=== PATIENT | female | born 1930 | race Caucasian/White ===

== ENCOUNTER → 2020-01-06 | Emergency (ER) | payer OTHER ==
[~2020-01-06] VITALS: Ht 160 cm; Wt 59.9 kg
[~2020-01-06] MED LIST: MORPHINE SULFATE 4 MG/ML SYR/VIAL IV ONE; ONDANSETRON HCL 4 MG/2 ML VIAL IV ONE
[2020-01-06 04:03] LABS: INR 1.07 (0.9-1.15)
[2020-01-06 05:30] VITALS: BP 167/77
== END | disposition home or self-care (01) ==
LOC: EDBD 03:03 → ER 03:03
DX: S01.01XA Laceration without foreign body of scalp, initial encounter (principal); S20.211A Contusion of right front wall of thorax, initial encounter; I48.91 Unspecified atrial fibrillation; E11.9 Type 2 diabetes mellitus without complications; I10 Essential (primary) hypertension; X58.XXXA Exposure to other specified factors, initial encounter; Y93.89 Activity, other specified; Y92.89 Other specified places as the place of occurrence of the external cause; Y99.8 Other external cause status
CPT/HCPCS: 36415; 70450; 71250; 72125; 74176; 85610; 85730; 93005; J2405

== ENCOUNTER 2020-04-16 22:15 | Emergency (ER) | payer OTHER ==
[~2020-04-16] VITALS: Ht 162.6 cm; Wt 68.0 kg
[2020-04-16 23:18] LABS: Basophils # (auto) 0 10 ^3/uL (0-0.2); Basophils % (auto) 0.6 % (0.0-2.0); Eosinophils # (auto) 0.1 10 ^3/uL (0-0.8); Eosinophils % (auto) 1.9 % (0.0-7.0); Hematocrit 32.4 % (36.0-46.0); Hemoglobin 10.5 g/dL (12.2-16.2); Lymphocytes # (auto) 1.7 10 ^3/uL (0.4-5.4); Lymphocytes % (auto) 34.5 % (10.0-50.0); Mean Corpuscular Hgb Conc. 32.3 g/dL (32.0-36.0); Monocytes # (auto) 0.4 10 ^3/uL (0-1.3); Monocytes % (auto) 9.1 % (0.0-12.0); Neutrophils # (auto) 2.6 10 ^3/uL (1.6-8.6); Neutrophils % (auto) 53.9 % (37.0-80.0); Platelet Count (auto) 195 10^3/uL (140-450); Red Cell Distribution Width 16.6 % (11.8-14.3); White Blood Cell 4.8 10^3/uL (4.4-10.8)
[2020-04-16 23:37] LABS: INR 1.09 (0.9-1.15); Partial Thromboplastin Time 26.3 sec (23.0-31.2)
[2020-04-16 23:44] LABS: Albumin 3.7 g/dL (3.4-5.0); Anion Gap 8 (5-15); Blood Urea Nitrogen 16 mg/dL (7-18); Calcium 8.7 mg/dL (8.5-10.1); Carbon Dioxide 23 mmol/L (21-32); Chloride 109 mmol/L (98-107); Glucose 131 mg/dL (74-106); Magnesium 1.8 mg/dL (1.6-2.6); Potassium 3.9 mmol/L (3.5-5.1); Sodium 140 mmol/L (136-145)
[2020-04-16 23:47] LABS: Alanine Aminotransferase 31 U/L (13-56); Aspartate Aminotransferase 30 U/L (15-37); GFR African American 62 mL/min; GFR Non-African American 51 mL/min
[2020-04-16 23:51] LABS: Alkaline Phosphatase 51 U/L (45-117); Bilirubin, Total 0.3 mg/dL (0.2-1.0); Total Protein 7.5 g/dL (6.4-8.2)
[2020-04-17] MEDS ORDERED: GLIP5TAB12 PO (02:29)
[2020-04-17] MEDS ORDERED: APIX2.5T PO (02:29)
[2020-04-17] MEDS ORDERED: METF-929 PO (02:29)
[2020-04-17] MEDS ORDERED: ROPI2TAB4 PO (02:29)
[2020-04-17] MEDS ORDERED: DILT-29 PO (02:29)
[2020-04-17] MEDS ORDERED: PANT1INJ3 IV (02:29)
[2020-04-17] MEDS ORDERED: DIGO0.12 PO (02:29)
[2020-04-17] MEDS ORDERED: METF500S PO (02:29)
[2020-04-17] MEDS ORDERED: PANT40TA2 PO (02:36)
[2020-04-17 02:45] VITALS: BP 146/68
== END 2020-04-17 04:18 | disposition home or self-care (01) ==
LOC: EDBD 22:15 → ER 22:15
DX: I48.0 Paroxysmal atrial fibrillation (principal); E11.9 Type 2 diabetes mellitus without complications; I10 Essential (primary) hypertension
CPT/HCPCS: 36415; 71045; 80053; 83735; 83880; 84484; 85025; 85379; 85610; 85730; 93005

== ENCOUNTER 2020-11-23 07:06 | Inpatient (IN) | payer OTHER ==
[~2020-11-23] VITALS: Ht 160 cm; Wt 56.7 kg
[~2020-11-23 07:06] MED LIST changes: +APIX2.5T PO; +ATOR20TA PO; +DIGO0.12 PO; +DILT-26 PO; +FAMO-12 PO; +FURO1TAB33 PO; +GLIM-5 PO; +METF-370 PO; +METO25TA93 PO; -MORPHINE SULFATE 4 MG/ML SYR/VIAL IV ONE; -ONDANSETRON HCL 4 MG/2 ML VIAL IV ONE; +POTA8TAB2 PO; +ROPI-24 PO
[2020-11-23] MEDS ORDERED: LIDOCAINE 2%HCL (LOCAL ANESTH.) INJ 20ML MDV ONE (08:14)
[2020-11-23] MEDS ORDERED: ENOXAPARIN SOD 100 MG/1 ML SYRINGE SC ONE (08:17)
[2020-11-23] MEDS ORDERED: fentaNYL CITRATE 100 MCG/2 ML VL ONE (08:32)
[2020-11-23] MEDS ORDERED: LIDOCAINE VISCOUS 2% 15ML UD ONE (08:33)
[2020-11-23] MEDS ORDERED: MIDAZOLAM HCL 1MG/1ML-2 ML VIAL ONE (08:33)
[2020-11-23] MEDS ORDERED: diphenhdrAMINE HCL 50 MG/1 ML VL ONE (09:39)
[2020-11-23] MEDS ORDERED: NITROGLYCERIN 0.4 MG SL TAB SL PRN ×2 (10:30→12:00)
[2020-11-23] MEDS ORDERED: ACETAMINOPHEN 500 MG TAB PO PRN (10:30)
[2020-11-23] MEDS ORDERED: MORPHINE SULF INJ 2 MG/ML SYRINGE 1ML IV PRN ×2 (10:30→12:00)
[2020-11-23] MEDS ORDERED: POTASSIUM CHLORIDE 8 MEQ TAB PO ONE (10:45)
[2020-11-23] MEDS ORDERED: metFORMIN HYDROCHLORIDE 500 MG TAB PO ONE (10:45)
[2020-11-23] MEDS ORDERED: SOTALOL HCL 80 MG TAB PO ONE (10:45)
[2020-11-23] MEDS ORDERED: GLIMEPIRIDE 2 MG TAB PO ONE (10:45)
[2020-11-23] MEDS ORDERED: FAMOTIDINE 20 MG TAB PO ONE (10:45)
[2020-11-23] MEDS ORDERED: APIXABAN 2.5 MG TAB PO ONE (10:45)
[2020-11-23 12:00] VITALS: BP 107/52
[2020-11-23] MEDS ORDERED: hydrALAZINE HCL 20 MG/ML VL IV PRN (12:15)
[2020-11-23] MEDS ORDERED: HYDROcodone-ACET 5/325MG TAB PO PRN (12:15)
[2020-11-23] MEDS ORDERED: ONDANSETRON HCL 4 MG/2 ML VIAL IV PRN (12:15)
[2020-11-23 14:42] VITALS: BP 107/52
[2020-11-23 16:57] VITALS: BP 115/76
[2020-11-23] MEDS: metFORMIN HYDROCHLORIDE 500 MG TAB PO SCH (18:00)
[2020-11-23 20:00] VITALS: BP 150/74
[2020-11-23] MEDS: SOTALOL HCL 80 MG TAB PO SCH (21:48)
[2020-11-23] MEDS: APIXABAN 2.5 MG TAB PO SCH (21:48)
[2020-11-23 22:05] VITALS: BP 160/60
[2020-11-24] VITALS (7 sets, daily range): BP systolic 127–174; BP diastolic 56–77
[2020-11-24] MEDS ORDERED: GLIMEPIRIDE 2 MG TAB PO SCH (07:00)
[2020-11-24] MEDS ORDERED: metFORMIN HYDROCHLORIDE 500 MG TAB PO SCH (07:00)
[2020-11-24] MEDS ORDERED: POTASSIUM CHLORIDE 8 MEQ TAB PO SCH (07:00)
[2020-11-24] MEDS ORDERED: FAMOTIDINE 20 MG TAB PO SCH (07:00)
[2020-11-24] MEDS ORDERED: ATORVASTATIN 20 MG TAB PO SCH (10:00)
[2020-11-24] MEDS: SOTALOL HCL 80 MG TAB PO SCH (10:28)
[2020-11-24] MEDS: APIXABAN 2.5 MG TAB PO SCH (10:28)
[2020-11-24] MEDS ORDERED: ALBUTEROL SULF 2.5 MG/0.5ML(0.5%) NEB SOLN NEB PRN (14:00)
[2020-11-24] MEDS ORDERED: ALBUTEROL SULF 2.5 MG/0.5ML(0.5%) NEB SOLN ONE (14:02)
[2020-11-24] MEDS ORDERED: FUROSEMIDE 20 MG/2 ML VIAL IV ONE (14:30)
[2020-11-24] MEDS ORDERED: AZITHROMYCIN 500MG/ 250ML 250 ML IV SCH (14:32)
[2020-11-24 15:06] LABS: Basophils # (auto) 0 10 ^3/uL (0-0.2); Basophils % (auto) 0.4 % (0.0-2.0); Eosinophils # (auto) 0.1 10 ^3/uL (0-0.8); Eosinophils % (auto) 1.2 % (0.0-7.0); Hematocrit 36.3 % (36.0-46.0); Lymphocytes # (auto) 0.9 10 ^3/uL (0.4-5.4); Lymphocytes % (auto) 8.5 % (10.0-50.0); Mean Corpuscular Hemoglobin 29.9 pg (28.0-32.0); Mean Corpuscular Hgb Conc. 33.2 g/dL (32.0-36.0); Mean Corpuscular Volume 90.1 fL (80.0-100.0); Monocytes # (auto) 0.5 10 ^3/uL (0-1.3); Monocytes % (auto) 4.5 % (0.0-12.0); Neutrophils # (auto) 8.6 10 ^3/uL (1.6-8.6); Neutrophils % (auto) 85.4 % (37.0-80.0); Platelet Count (auto) 228 10^3/uL (140-450); Red Blood Cells 4.03 10^6/uL (4.0-5.20); Red Cell Distribution Width 16.8 % (11.8-14.3); White Blood Cell 10.1 10^3/uL (4.4-10.8)
[2020-11-24 15:29] LABS: BUN/Creatinine Ratio 11.7; Calcium 9.6 mg/dL (8.5-10.1); Potassium 3.9 mmol/L (3.5-5.1)
[2020-11-24] MEDS ORDERED: PROMETHAZINE-DM 5 ML ORAL SYRUP PO ONE (15:30)
[2020-11-24] MEDS: metFORMIN HYDROCHLORIDE 500 MG TAB PO SCH (18:00)
[2020-11-29] MEDS ORDERED: CEPH-322 PO (18:32)
== END 2020-11-24 20:20 | disposition home or self-care (01) | DRG 274 ==
LOC: CATH 07:06 → TELE 10:24 → TELE-WESTW 12:09
PROVIDERS: ADMIT Internal Medicine; ATTEND Internal Medicine
PROC: 02583ZZ Destruction of Conduction Mechanism, Percutaneous Approach (ICD-10-PCS; principal; 2020-11-23)
PROC: 4A023FZ Measurement of Cardiac Rhythm, Percutaneous Approach (ICD-10-PCS; 2020-11-23)
PROC: 4A0234Z Measurement of Cardiac Electrical Activity, Percutaneous Approach (ICD-10-PCS; 2020-11-23)
PROC: 02K83ZZ Map Conduction Mechanism, Percutaneous Approach (ICD-10-PCS; 2020-11-23)
PROC: B24BZZ4 Ultrasonography of Heart with Aorta, Transesophageal (ICD-10-PCS; 2020-11-23)
PROC: 5A2204Z Restoration of Cardiac Rhythm, Single (ICD-10-PCS; 2020-11-23)
DX: I48.92 Unspecified atrial flutter (principal); I48.91 Unspecified atrial fibrillation; I10 Essential (primary) hypertension; Z20.822 Contact with and (suspected) exposure to COVID-19; G25.81 Restless legs syndrome; E11.51 Type 2 diabetes mellitus with diabetic peripheral angiopathy without gangrene; G20 Parkinson's disease; E78.5 Hyperlipidemia, unspecified; I25.10 Atherosclerotic heart disease of native coronary artery without angina pectoris; E78.00 Pure hypercholesterolemia, unspecified; K21.9 Gastro-esophageal reflux disease without esophagitis; Z79.01 Long term (current) use of anticoagulants; Z79.84 Long term (current) use of oral hypoglycemic drugs; Z79.899 Other long term (current) drug therapy; Z88.2 Allergy status to sulfonamides; Z87.891 Personal history of nicotine dependence; E66.9 Obesity, unspecified; I49.5 Sick sinus syndrome; Z68.22 Body mass index [BMI] 22.0-22.9, adult
CPT/HCPCS: 36415; 71045; 80048; 82962; 83880; 85025; 92960; 93005; 93312; 93613; 93656; 94640; 99152; 99153; G0378; J2250

== ENCOUNTER 2020-11-29 12:48 | Emergency (ER) | payer OTHER ==
[~2020-11-29] VITALS: Ht 160 cm; Wt 54.4 kg
[~2020-11-29 12:48] MED LIST changes: -DIGO0.12 PO; -DILT-26 PO; -FURO1TAB33 PO; -METO25TA93 PO
[2020-11-29] MEDS ORDERED: SODIUM CHLORIDE 0.9% 1,000 ML IVB ONE (13:15)
[2020-11-29 13:35] LABS: Basophils # (auto) 0 10 ^3/uL (0-0.2); Basophils % (auto) 0.4 % (0.0-2.0); Eosinophils # (auto) 0.1 10 ^3/uL (0-0.8); Hematocrit 32.1 % (36.0-46.0); Hemoglobin 10.4 g/dL (12.2-16.2); Lymphocytes # (auto) 0.9 10 ^3/uL (0.4-5.4); Mean Corpuscular Hemoglobin 29.6 pg (28.0-32.0); Mean Corpuscular Hgb Conc. 32.5 g/dL (32.0-36.0); Monocytes # (auto) 0.4 10 ^3/uL (0-1.3); Monocytes % (auto) 6.7 % (0.0-12.0); Neutrophils # (auto) 4.9 10 ^3/uL (1.6-8.6); Neutrophils % (auto) 77.9 % (37.0-80.0); Platelet Count (auto) 197 10^3/uL (140-450); Red Blood Cells 3.53 10^6/uL (4.0-5.20); Red Cell Distribution Width 16.8 % (11.8-14.3); White Blood Cell 6.3 10^3/uL (4.4-10.8)
[2020-11-29 13:57] LABS: Albumin 3.7 g/dL (3.4-5.0); Calcium 9.3 mg/dL (8.5-10.1); Potassium 3.8 mmol/L (3.5-5.1)
[2020-11-29 14:00] LABS: BUN/Creatinine Ratio 16.8; Bilirubin, Total 0.5 mg/dL (0.2-1.0); Total Protein 7.9 g/dL (6.4-8.2)
[2020-11-29 14:36] LABS: Urine Bacteria NONE SEEN /hpf (None Seen); Urine Blood Negative /uL (Negative); Urine Specific Gravity 1.021 (1.001-1.035); Urine WBC <1 /hpf (0 - 5)
[2020-11-29] MEDS ORDERED: MORPHINE SULF INJ 2 MG/ML SYRINGE 1ML IV ONE (14:45)
[2020-11-29] MEDS ORDERED: ONDANSETRON HCL 4 MG/2 ML VIAL IV ONE (14:45)
[2020-11-29 15:59] LABS: INR 1.17 (0.9-1.15); Partial Thromboplastin Time 28.6 sec (23.0-31.2)
[2020-11-29] MEDS ORDERED: LORazepam 2MG/ML-1ML VIAL ONE (16:10)
[2020-11-29] MEDS ORDERED: CEPH250C PO (18:32)
[2020-11-29] MEDS ORDERED: TAM04C PO (18:34)
[2020-11-29] MEDS ORDERED: HYDR-4902 PO (18:35)
[2020-11-29 21:18] VITALS: BP 130/57
== END 2020-11-29 22:55 | disposition admitted as inpatient to this hospital (09) ==
LOC: ER 12:48
DX: N13.2 Hydronephrosis with renal and ureteral calculous obstruction (principal); D50.9 Iron deficiency anemia, unspecified; R19.7 Diarrhea, unspecified; E11.9 Type 2 diabetes mellitus without complications; E78.5 Hyperlipidemia, unspecified; I11.0 Hypertensive heart disease with heart failure; I50.9 Heart failure, unspecified; K21.9 Gastro-esophageal reflux disease without esophagitis; I48.91 Unspecified atrial fibrillation; Z90.710 Acquired absence of both cervix and uterus; Z98.890 Other specified postprocedural states; Z88.1 Allergy status to other antibiotic agents; Z91.040 Latex allergy status; Z88.2 Allergy status to sulfonamides; Z88.8 Allergy status to other drugs, medicaments and biological substances; Z79.84 Long term (current) use of oral hypoglycemic drugs; Z79.899 Other long term (current) drug therapy
CPT/HCPCS: 36415; 71045; 74176; 80053; 81001; 83735; 85025; 85610; 85730; 93005; 96361; 96374; 96375; 99285; J2060; J2270; J2405

== ENCOUNTER 2021-02-26 09:53 | Emergency (ER) | payer OTHER ==
[~2021-02-26] VITALS: Ht 160 cm; Wt 54.0 kg
[~2021-02-26 09:53] MED LIST changes: +CEPH-322 PO; +HYDR-4902 PO; +TAM04C PO
[2021-02-26 10:18] VITALS: BP 132/55
[2021-02-26] MEDS ORDERED: LACTULOSE 20Gm/30ML SOLN PO ONE (11:15)
== END 2021-02-26 11:25 | disposition home or self-care (01) ==
LOC: ER 09:53
DX: K59.00 Constipation, unspecified (principal); K64.4 Residual hemorrhoidal skin tags; I11.0 Hypertensive heart disease with heart failure; I50.9 Heart failure, unspecified; I48.91 Unspecified atrial fibrillation; K21.9 Gastro-esophageal reflux disease without esophagitis; E78.5 Hyperlipidemia, unspecified; Z90.710 Acquired absence of both cervix and uterus; Z79.899 Other long term (current) drug therapy; Z88.1 Allergy status to other antibiotic agents; Z88.2 Allergy status to sulfonamides; Z88.8 Allergy status to other drugs, medicaments and biological substances; Z91.040 Latex allergy status
CPT/HCPCS: 74022

== ENCOUNTER 2021-04-01 13:31 | Emergency (ER) | payer OTHER ==
[~2021-04-01] VITALS: Ht 160 cm; Wt 56.2 kg
[2021-04-01] MEDS ORDERED: LACTULOSE 20Gm/30ML SOLN PO ONE (16:15)
[2021-04-01 16:54] VITALS: BP 143/31
== END 2021-04-01 16:55 | disposition home or self-care (01) ==
LOC: ER 13:31
DX: K59.00 Constipation, unspecified (principal); K64.4 Residual hemorrhoidal skin tags; I11.0 Hypertensive heart disease with heart failure; I50.9 Heart failure, unspecified; E11.9 Type 2 diabetes mellitus without complications; E78.5 Hyperlipidemia, unspecified; Z90.710 Acquired absence of both cervix and uterus; Z88.2 Allergy status to sulfonamides; Z88.1 Allergy status to other antibiotic agents; Z79.899 Other long term (current) drug therapy
CPT/HCPCS: 74176